=== PATIENT | male | born 1965 | race Caucasian/White ===

== ENCOUNTER 2023-03-11 07:02 | Day surgery (SDC) | payer OTHER ==
[2023-03-07 11:28] VITALS: BP 144/82
[2023-03-07 11:35] LABS: BASOPHILS % (AUTO) 0.6 % (0.0-5.0); EOSINOPHILS % (AUTO) 1.4 % (0.0-8.0); HEMATOCRIT 41.7 % (42-54); LYMPHOCYTES % (AUTO) 15.9 % (21.0-51.0); MEAN CORPUSCULAR HEMOGLOBIN 30.5 pg (27.0-33.0); MEAN CORPUSCULAR HGB CONC 33.8 g/dL (32.0-36.0); MEAN CORPUSCULAR VOLUME 90.1 fL (79-99); MONOCYTES % (AUTO) 7.8 % (3.0-13.0); NEUTROPHILS % (AUTO) 74.1 % (40.0-77.0); PLATELET COUNT (AUTO) 335 K/uL (130-400); RED BLOOD CELL COUNT(AUTO) 4.63 MIL/uL (4.50-6.20); RED CELL DISTRIBUTION WIDTH 13.2 % (11.0-15.5); WHITE BLOOD COUNT (AUTO) 8.9 K/uL (4.8-10.8)
[2023-03-07 11:50] LABS: CREATININE 1.2 mg/dL (0.5-1.5); POTASSIUM 4.7 mmol/L (3.5-5.1)
[2023-03-11] VITALS (18 sets, daily range): BP systolic 116–130; BP diastolic 58–74
[~2023-03-11] VITALS: Ht 177.8 cm; Wt 77.4 kg
[~2023-03-11 07:02] MED LIST: AMLO-258 PO; CEFAZOLIN SODIUM 2 GM VIAL ONE; LABE300T4 PO; LACTATED RINGERS 1000ML 1,000 ML IV ONE; ROSU20TA31 PO; VALS160T29 PO
[2023-03-11] MEDS ORDERED: HYDROMORPHONE 1 MG INJ ONE ×2 (07:36→10:04)
[2023-03-11] MEDS ORDERED: FAMOTIDINE 20MG VIAL IV ONE (07:36)
[2023-03-11] MEDS ORDERED: GLYCOPYRROLATE 1 MG/5 ML SYRINGE ONE (07:38)
[2023-03-11] MEDS ORDERED: PHENYLEPHRINE HCL 10 MG/ML 1ML VIAL IV ONE (07:38)
[2023-03-11] MEDS ORDERED: LIDOCAINE PF 100MG/5ML (2%) SYRINGE 5ML ONE (07:38)
[2023-03-11] MEDS ORDERED: ROCURONIUM 10MG/1ML SYR 10 MG/ML ML ONE (07:39)
[2023-03-11] MEDS ORDERED: PROPOFOL 10 MG/ML 20ML VIAL IV ONE (07:39)
[2023-03-11] MEDS ORDERED: MIDAZOLAM HCL 1 MG/ML 2ML VIAL ONE (07:39)
[2023-03-11] MEDS ORDERED: FENTANYL CITRATE PF 50 MCG/1 ML 2ML VIAL ONE (07:39)
[2023-03-11] MEDS ORDERED: CEFAZOLIN SODIUM 2 GM VIAL IVPB ONE (08:15)
[2023-03-11] MEDS ORDERED: EPHEDRINE SULFATE 50 MG/ML AMPULE ONE (08:20)
[2023-03-11] MEDS ORDERED: ONDANSETRON 4MG INJ ONE (08:33)
[2023-03-11] MEDS ORDERED: METHYLENE BLUE 5 MG/ML AMP ONE (08:47)
[2023-03-11] MEDS ORDERED: BUPIVACAINE/PF 0.5% 10ML VIAL ONE (09:20)
[2023-03-11] MEDS ORDERED: BUPIVACAINE/PF 0.5% 10ML VIAL IJ ONE (09:24)
[2023-03-11] MEDS ORDERED: NEOSTIGMINE 5MG/5ML SYR IV ONE (09:26)
[2023-03-11] MEDS ORDERED: IBUP-2697 PO (11:17)
== END 2023-03-11 11:40 | disposition home or self-care (01) ==
LOC: DAH 07:02
PROVIDERS: ATTEND Surgery
DX: K40.91 Unilateral inguinal hernia, without obstruction or gangrene, recurrent (principal); Z20.822 Contact with and (suspected) exposure to COVID-19; I10 Essential (primary) hypertension; E78.5 Hyperlipidemia, unspecified; Z98.890 Other specified postprocedural states; Z88.8 Allergy status to other drugs, medicaments and biological substances; Z82.49 Family history of ischemic heart disease and other diseases of the circulatory system
CPT/HCPCS: 80048; 85025; 87426; 36415; 49520; A6260; A4663; J7030; A4452; A4344; J7120; J3490 ×5; J3010; J1170 ×2; J2710; J2001; J2250; J2704; J2405; J2370; J0690 ×2; C1781; A4930; A4215; A4223; A4222; A4221; A4600; Q9968